=== PATIENT | female | born 1955 | race Caucasian/White ===

== ENCOUNTER → 2016-06-18 | Outpatient (CLI) | payer BC ==
[~2016-06-18] MED LIST: ACTOS30 MG PO; ALDACTONE 25MG25 M1 PO; ALPHA LIPOIC ACID PO; AMITRIPTYLINE H10 M1; AMITRIPTYLINE H50 M1 PO; ASPIRIN 32325 MG/TA1 PO; B-121000 MCG PO; CANA300T PO; CLINORIL 2200 MG/TAB PO; ELAVIL150 MG PO; FEMARA PO; GLUCOPHAGE500 MG/TAB PO; GLUCOTROL XL10 MG PO; GLUCOTROL10 MG PO; HAIRSKINNAILS PO; JANUMET 1000 MG1 TA1 PO; JANUVIA 100MG100 MG PO; LANTUS SOLOS100 U/ML SC; LANTUS100 U/ML SQ; LASIX 20MG TABL20 MG PO; LIPITOR 10MG10 MG PO; MYRBETR50MG PO; NATURAL E400 IU PO; NEURONTIN300 MG/CAP PO; NORCO 325 MG-7.1 TAB PO; NOVLOG SC; NOVOLOG 100U100 U/M1 SQ; PAMELOR 10MG10 MG PO; PRILOSEC 20MG20 MG PO; PROFERRIN ES12 MG PO; PROZAC40 MG PO; TENORMIN 5050 MG/TAB PO; TOUJEO300 U/ML SQ; URSO FORTE500 MG PO; VASOTEC 10M10 MG/TAB PO
== END ==
LOC: MC.RAD 13:00
DX: Z12.31 Encounter for screening mammogram for malignant neoplasm of breast (principal); Z85.3 Personal history of malignant neoplasm of breast; Z90.11 Acquired absence of right breast and nipple

== ENCOUNTER 2016-10-07 12:08 | Outpatient (CLI) | payer BC ==
[2016-10-07] VITALS (11 sets, daily range): BP systolic 90–118; BP diastolic 32–54; PULSE 83–91
[~2016-10-07] VITALS: Ht 170.2 cm; Wt 131.7 kg
== END 2016-10-07 16:37 | disposition home or self-care (01) ==
LOC: COL.RAD 12:08
DX: R91.1 Solitary pulmonary nodule (principal); Z85.3 Personal history of malignant neoplasm of breast

== ENCOUNTER → 2016-10-24 | Outpatient (CLI) | payer BC ==
[2016-10-24 17:15] LABS: BASO # 0.1 (0.0-0.2); EOS # 0.5 (0.0-0.7); GRAN # 3.6 (1.4-6.5); GRAN % 59.3 % (42.2-75.2); LYMPH # 1.1 (1.2-3.4); LYMPH % 18.6 % (20.0-51.0); MEAN CELL VOLUME 99 fl (80.0-100.0); MEAN CORPUSCULAR HGB CONC 38 g/dl (33.0-37.0); MEAN PLATELET VOLUME 10.5 fl (7.4-10.4); MONO # 0.8 (0.1-0.6); MONO % 12.8 % (1.7-9.3); PLATELET COUNT 87 K/mm3 (130-400); RED BLOOD COUNT 3.08 M/mm3 (4.10-5.30); REDCELL DISTRIBUTION WIDTH-CV 14.6 % (11.5-14.5); WHITE BLOOD COUNT 6.1 K/mm3 (4.8-10.8)
[2016-10-24 17:19] LABS: HEMATOCRIT 30.6 % (37.0-47.0); HEMOGLOBIN 11.6 g/dl (12.5-16.0); MEAN CORPUSCULAR HEMOGLOBIN 38 pg (27.0-31.0)
[2016-10-24 17:26] LABS: ADJUSTED CALCIUM 9.6 mg/dL (8.4-10.2); ALBUMIN 3.6 gm/dL (3.5-5.0); BILIRUBIN,TOTAL 0.9 mg/dL (0.0-1.0); C-REACTIVE PROTEIN 1.7 mg/dL (0.0-0.9); CALCIUM 9.3 mg/dL (8.4-10.2); CREATININE, serum 0.98 mg/dL (0.52-1.25); POTASSIUM 4.1 mmol/L (3.4-5.0)
[2016-10-24 17:42] LABS: ERYTHROCYTE SEDIMENTATION RATE 95 mm/hr (0-30)
[2016-10-30 10:31] LABS: .HISTOPLASMA ANTIGEN COMMENT Negative (()); .HISTOPLASMA ANTIGEN SERUM None Detected (())
[2016-10-30 15:06] LABS: COCCIDIOIDES AB IGG Negative (Negative); COCCIDIOIDES AB IGM Negative (Negative); COCCIDIOIDES CF Negative (Negative)
== END ==
LOC: COL.LAB 15:54
PROVIDERS: Internal Medicine Infectious Disease
DX: B39.9 Histoplasmosis, unspecified (principal)

== ENCOUNTER → 2016-11-14 | Outpatient (CLI) | payer BC ==
[2016-11-20 08:35] LABS: .HISTOPLASMA ANTIGEN COMMENT Negative (()); .HISTOPLASMA ANTIGEN SERUM None Detected (())
== END ==
LOC: COL.LAB 12:26
PROVIDERS: Internal Medicine Infectious Disease
DX: B39.9 Histoplasmosis, unspecified (principal)

== ENCOUNTER → 2017-08-06 | Outpatient (CLI) | payer BC ==
[~2017-08-06] VITALS: Ht 170.2 cm; Wt 130.9 kg
[~2017-08-06] MED LIST changes: +JARDIANCE25; +JARDIANCE25 PO
[2017-08-06 12:57] VITALS: BP 111/70; PULSE 95
== END ==
LOC: COL.RAD 12:15
DX: K74.60 Unspecified cirrhosis of liver (principal); Z85.3 Personal history of malignant neoplasm of breast; Z90.49 Acquired absence of other specified parts of digestive tract; Z98.890 Other specified postprocedural states

== ENCOUNTER → 2017-09-07 | Outpatient (CLI) | payer BC | LOC: MC.RAD 07-28 11:20 | DX: Z12.31 Encounter for screening mammogram for malignant neoplasm of breast (principal); Z85.3 Personal history of malignant neoplasm of breast ==

== ENCOUNTER 2017-11-24 09:43 | Day surgery (SDC) | payer BC ==
[~2017-11-24] VITALS: Ht 170.2 cm; Wt 119.5 kg
[~2017-11-24 09:43] MED LIST changes: +ALDACTONE 100M100 MG PO; -ALDACTONE 25MG25 M1 PO; +ALPHA LIPOIC A200 M2 PO; -ALPHA LIPOIC ACID PO; -LASIX 20MG TABL20 MG PO; +LASIX 40MG TABL40 MG PO; +NATURAL IRON65 MG PO; -PROFERRIN ES12 MG PO
[2017-11-24] MEDS ORDERED: VITAMIN D31000 I1 PO (10:45)
[2017-11-24] MEDS ORDERED: VITAMIN C500 MG PO (10:50)
[2017-11-24 11:03] VITALS: BP 120/56; PULSE 88; TEMP 98.1
[2017-11-24 12:15] VITALS: BP 113/48; PULSE 88; TEMP 98.3
[2017-11-24 12:30] VITALS: BP 115/58; PULSE 85
[2017-11-24 12:45] VITALS: BP 114/63; PULSE 89
[2017-11-24 13:35] VITALS: BP 105/57; PULSE 85
== END 2017-11-24 13:05 | disposition home or self-care (01) ==
LOC: SDCO 09:43
DX: K76.6 Portal hypertension (principal); K31.89 Other diseases of stomach and duodenum; K74.60 Unspecified cirrhosis of liver; I85.10 Secondary esophageal varices without bleeding; K76.0 Fatty (change of) liver, not elsewhere classified; D50.0 Iron deficiency anemia secondary to blood loss (chronic); E11.42 Type 2 diabetes mellitus with diabetic polyneuropathy; G47.33 Obstructive sleep apnea (adult) (pediatric); D69.6 Thrombocytopenia, unspecified; Z90.49 Acquired absence of other specified parts of digestive tract; Z90.11 Acquired absence of right breast and nipple; Z79.4 Long term (current) use of insulin; Z88.1 Allergy status to other antibiotic agents; Z85.3 Personal history of malignant neoplasm of breast
CPT/HCPCS: J2704

== ENCOUNTER 2018-04-06 08:40 | Day surgery (SDC) | payer BC ==
[~2018-04-06] VITALS: Ht 170.2 cm; Wt 126.7 kg
[2018-04-06] VITALS (22 sets, daily range): BP systolic 107–133; BP diastolic 60–72; PULSE 83–105; TEMP 98–98.1
[~2018-04-06 08:40] MED LIST changes: +VITAMIN C500 MG PO; +VITAMIN D31000 I1 PO
[2018-04-06 09:39] LABS: MEAN CELL VOLUME 89 fl (80.0-100.0); MEAN CORPUSCULAR HGB CONC 31 g/dl (33.0-37.0); MEAN PLATELET VOLUME 9.9 fl (7.4-10.4); RED BLOOD COUNT 2.32 M/mm3 (4.10-5.30); REDCELL DISTRIBUTION WIDTH-CV 17.3 % (11.5-14.5)
[2018-04-06] MEDS ORDERED: XIFAXAN550 MG PO (09:47)
[2018-04-06] MEDS ORDERED: PROTONIX 40MG T40 MG PO (09:48)
[2018-04-06 09:50] LABS: INR 1.8 (0.8-3.0)
[2018-04-06 09:53] LABS: CALCIUM 8.7 mg/dL (8.4-10.2); CREATININE, serum 1.43 mg/dL (0.52-1.25); POTASSIUM 4.4 mmol/L (3.4-5.0)
[2018-04-06 10:00] LABS: HEMATOCRIT 20.7 % (37.0-47.0); HEMOGLOBIN 6.4 g/dl (12.5-16.0); MEAN CORPUSCULAR HEMOGLOBIN 28 pg (27.0-31.0); PLATELET COUNT 62 K/mm3 (130-400)
== END 2018-04-06 18:20 | disposition home or self-care (01) ==
LOC: COL.CAR 08:40
PROVIDERS: Internal Medicine Cardiovascular Disease
DX: I27.20 Pulmonary hypertension, unspecified (principal); D64.9 Anemia, unspecified; R18.8 Other ascites; K72.90 Hepatic failure, unspecified without coma; R60.9 Edema, unspecified; Z79.899 Other long term (current) drug therapy; Z79.4 Long term (current) use of insulin; I05.9 Rheumatic mitral valve disease, unspecified; I10 Essential (primary) hypertension; E78.5 Hyperlipidemia, unspecified; I08.1 Rheumatic disorders of both mitral and tricuspid valves
CPT/HCPCS: J1644; J2250; J3010; P9016; Q9967

== ENCOUNTER 2018-04-26 12:55 | Outpatient (CLI) | payer BC ==
[~2018-04-26] VITALS: Ht 170.2 cm; Wt 134.9 kg
[~2018-04-26 12:55] MED LIST changes: +PROTONIX 40MG T40 MG PO; +XIFAXAN550 MG PO
[2018-04-26] MEDS ORDERED: JANUVIA25 MG (13:13)
[2018-04-26 13:20] VITALS: BP 155/75; PULSE 116
--- NOTE | 2018-04-26 13:30 | NUR ---
pt taken to ultrasound
[2018-04-26 14:49] VITALS: BP 151/76; PULSE 112
--- NOTE | 2018-04-26 14:52 | NUR ---
NO FLUID WAS SENT FOR LABS. DR MENDOZA'S OFFICE NURSE WAS NOTIFIED. ALL FLUID WAS SOLIDIFIED.
--- NOTE | 2018-04-26 14:54 | NUR ---
7700 CC OF REDDISH BROWN FLUID WAS REMOVED BY DR CHANG. IT WAS REPORTED THAT THE LAST SEVERAL LITERS WERE THICKER THAN THE FIRST LITERS.
[2018-04-26 15:20] VITALS: BP 120/48; PULSE 108; TEMP 97.9
== END 2018-04-26 17:31 | disposition home or self-care (01) ==
LOC: COL.RAD 12:55
DX: K74.60 Unspecified cirrhosis of liver (principal)
CPT/HCPCS: P9047

== ENCOUNTER → 2018-05-10 | Outpatient (CLI) | payer BC ==
[~2018-05-10] MED LIST changes: +JANUVIA25 MG
== END ==
LOC: COL.RAD 10:13
DX: K74.3 Primary biliary cirrhosis (principal); R16.1 Splenomegaly, not elsewhere classified; E11.9 Type 2 diabetes mellitus without complications; K75.81 Nonalcoholic steatohepatitis (NASH); K72.90 Hepatic failure, unspecified without coma; Z90.49 Acquired absence of other specified parts of digestive tract

== ENCOUNTER 2018-05-16 18:46 | Inpatient (IN) | payer BC ==
[~2018-05-16] VITALS: Ht 170.2 cm; Wt 121.3 kg
[2018-05-16 19:24] VITALS: PULSE 84; TEMP 98
[2018-05-16] MEDS ORDERED: VASOTEC 10M10 MG/TAB PO (20:47)
[2018-05-16] MEDS ORDERED: LASIX 80MG TABL80 MG PO (20:48)
[2018-05-16] MEDS ORDERED: URSO FORTE500 MG PO (20:49)
[2018-05-16] MEDS ORDERED: SYNTHROID 0.0.025 MG PO (20:51)
[2018-05-16] MEDS ORDERED: PHARMASSURE ZIN50 MG PO (20:52)
[2018-05-16] MEDS ORDERED: INDERAL 10MG10 MG PO (20:52)
[2018-05-16 22:24] LABS: BASO % 0.5 % (0.0-2.0); EOS # 0.4 (0.0-0.7); EOS % 5.3 % (0-4.0); GRAN % 61.2 % (42.2-75.2); LYMPH # 1.3 (1.2-3.4); LYMPH % 15.5 % (20.0-51.0); MEAN CELL VOLUME 95 fl (80.0-100.0); MEAN CORPUSCULAR HGB CONC 31 g/dl (33.0-37.0); MEAN PLATELET VOLUME 9.8 fl (7.4-10.4); MONO # 1.3 (0.1-0.6); MONO % 16.5 % (1.7-9.3); PLATELET COUNT 60 K/mm3 (130-400); RED BLOOD COUNT 2.66 M/mm3 (4.10-5.30); REDCELL DISTRIBUTION WIDTH-CV 21.6 % (11.5-14.5)
[2018-05-16 22:26] LABS: HEMATOCRIT 25.2 % (37.0-47.0); HEMOGLOBIN 7.9 g/dl (12.5-16.0); MEAN CORPUSCULAR HEMOGLOBIN 30 pg (27.0-31.0)
[2018-05-16 22:33] LABS: INR 1.6 (0.8-3.0); PROTHROMBIN TIME 18.2 SECONDS (9.7-12.8)
[2018-05-16 22:39] LABS: ALBUMIN 2.8 gm/dL (3.5-5.0); BILIRUBIN,TOTAL 1.3 mg/dL (0.0-1.0); CALCIUM 8.7 mg/dL (8.4-10.2); CREATININE, serum 1.32 mg/dL (0.52-1.25); POTASSIUM 3.8 mmol/L (3.4-5.0)
[2018-05-17] VITALS (11 sets, daily range): BP systolic 83–105; BP diastolic 42–64; PULSE 67–91; TEMP 97.7–98.5
[2018-05-18] VITALS (17 sets, daily range): BP systolic 99–142; BP diastolic 45–80; PULSE 91–107; TEMP 97.9–98.9
[2018-05-18 06:49] LABS: BASO % 0.5 % (0.0-2.0); EOS # 0.5 (0.0-0.7); EOS % 6.1 % (0-4.0); GRAN % 63.8 % (42.2-75.2); LYMPH % 13.3 % (20.0-51.0); MEAN CELL VOLUME 98 fl (80.0-100.0); MEAN CORPUSCULAR HGB CONC 34 g/dl (33.0-37.0); MEAN PLATELET VOLUME 10.4 fl (7.4-10.4); MONO # 1.2 (0.1-0.6); MONO % 15.4 % (1.7-9.3); PLATELET COUNT 57 K/mm3 (130-400); RED BLOOD COUNT 2.37 M/mm3 (4.10-5.30); REDCELL DISTRIBUTION WIDTH-CV 23.3 % (11.5-14.5)
[2018-05-18 06:50] LABS: HEMATOCRIT 23.1 % (37.0-47.0); HEMOGLOBIN 7.9 g/dl (12.5-16.0); MEAN CORPUSCULAR HEMOGLOBIN 33 pg (27.0-31.0)
[2018-05-18 07:01] LABS: ALBUMIN 2.8 gm/dL (3.5-5.0); CALCIUM 8.6 mg/dL (8.4-10.2); CREATININE, serum 1.3 mg/dL (0.52-1.25); POTASSIUM 3.5 mmol/L (3.4-5.0)
[2018-05-18 11:02] LABS: RETIC # 0.08 M/mm3 (0.02-0.16); RETIC % 6.4 % (0.5-3.52)
[2018-05-19 03:30] VITALS: BP 117/57; PULSE 97; TEMP 98.1
[2018-05-19 07:01] LABS: BASO # 0.1 (0.0-0.2); BASO % 0.7 % (0.0-2.0); EOS # 0.6 (0.0-0.7); EOS % 7.2 % (0-4.0); GRAN # 5.8 (1.4-6.5); GRAN % 67.7 % (42.2-75.2); HEMATOCRIT 27.7 % (37.0-47.0); HEMOGLOBIN 9.4 g/dl (12.5-16.0); LYMPH % 11.2 % (20.0-51.0); MEAN CELL VOLUME 96 fl (80.0-100.0); MEAN CORPUSCULAR HEMOGLOBIN 32 pg (27.0-31.0); MEAN CORPUSCULAR HGB CONC 34 g/dl (33.0-37.0); MEAN PLATELET VOLUME 10.3 fl (7.4-10.4); MONO # 1.1 (0.1-0.6); MONO % 12.5 % (1.7-9.3); PLATELET COUNT 53 K/mm3 (130-400); REDCELL DISTRIBUTION WIDTH-CV 22.5 % (11.5-14.5)
[2018-05-19 07:16] LABS: ALBUMIN 2.8 gm/dL (3.5-5.0); CALCIUM 8.5 mg/dL (8.4-10.2); CREATININE, serum 1.05 mg/dL (0.52-1.25); POTASSIUM 3.7 mmol/L (3.4-5.0)
[2018-05-19 08:17] VITALS: BP 116/65; PULSE 101; TEMP 98.1
[2018-05-19 16:35] VITALS: BP 120/62; PULSE 100; TEMP 98.5
[2018-05-19 20:16] VITALS: BP 107/53; PULSE 102; TEMP 98.6
[2018-05-20 00:48] VITALS: BP 116/66; PULSE 103; TEMP 98.3
[2018-05-20 04:03] VITALS: BP 105/56; PULSE 195; PULSE 95; TEMP 98.4
[2018-05-20 06:16] LABS: ALBUMIN 2.6 gm/dL (3.5-5.0); CALCIUM 8.2 mg/dL (8.4-10.2); CREATININE, serum 0.89 mg/dL (0.52-1.25); PHOSPHOROUS 2.4 mg/dL (2.5-4.5); POTASSIUM 3.9 mmol/L (3.4-5.0)
[2018-05-20 06:37] LABS: BASO # 0.1 (0.0-0.2); BASO % 0.7 % (0.0-2.0); EOS # 0.6 (0.0-0.7); EOS % 7.2 % (0-4.0); GRAN # 5.5 (1.4-6.5); GRAN % 67.5 % (42.2-75.2); LYMPH # 0.9 (1.2-3.4); LYMPH % 10.6 % (20.0-51.0); MEAN CELL VOLUME 95 fl (80.0-100.0); MEAN CORPUSCULAR HGB CONC 35 g/dl (33.0-37.0); MEAN PLATELET VOLUME 9.1 fl (7.4-10.4); MONO # 1.1 (0.1-0.6); MONO % 12.9 % (1.7-9.3); RED BLOOD COUNT 2.74 M/mm3 (4.10-5.30); REDCELL DISTRIBUTION WIDTH-CV 22.1 % (11.5-14.5)
[2018-05-20 06:38] LABS: HEMATOCRIT 26.1 % (37.0-47.0); HEMOGLOBIN 9.1 g/dl (12.5-16.0); MEAN CORPUSCULAR HEMOGLOBIN 33 pg (27.0-31.0)
[2018-05-20 06:40] LABS: PLATELET COUNT 40 K/mm3 (130-400)
[2018-05-20 07:11] VITALS: BP 125/72; PULSE 104; TEMP 98.3
== END 2018-05-20 11:38 | disposition home or self-care (01) | DRG 674 ==
LOC: MEDICAL 18:46
PROVIDERS: ADMIT Internal Medicine Nephrology
PROC: 0JH60XZ Insertion of Tunneled Vascular Access Device into Chest Subcutaneous Tissue and Fascia, Open Approach (ICD-10-PCS; principal; 2018-05-17)
PROC: 02H633Z Insertion of Infusion Device into Right Atrium, Percutaneous Approach (ICD-10-PCS; 2018-05-17)
PROC: 5A1D70Z Performance of Urinary Filtration, Intermittent, Less than 6 Hours Per Day (ICD-10-PCS; 2018-05-18)
PROC: 5A1D70Z Performance of Urinary Filtration, Intermittent, Less than 6 Hours Per Day (ICD-10-PCS; 2018-05-19)
PROC: 0W9G3ZZ Drainage of Peritoneal Cavity, Percutaneous Approach (ICD-10-PCS; 2018-05-19)
DX: N17.9 Acute kidney failure, unspecified (principal); Z68.41 Body mass index [BMI] 40.0-44.9, adult; R18.8 Other ascites; D62 Acute posthemorrhagic anemia; N18.2 Chronic kidney disease, stage 2 (mild); K74.69 Other cirrhosis of liver; K74.3 Primary biliary cirrhosis; E66.01 Morbid (severe) obesity due to excess calories; K72.90 Hepatic failure, unspecified without coma; D63.1 Anemia in chronic kidney disease; E11.22 Type 2 diabetes mellitus with diabetic chronic kidney disease; Z85.3 Personal history of malignant neoplasm of breast
CPT/HCPCS: G0365; J0690; J0881; J1644; J1815; J2250; J2916; J3010; P9016

== ENCOUNTER 2018-07-27 15:08 | Inpatient (IN) | payer BC ==
[~2018-07-27 15:08] MED LIST changes: +INDERAL 10MG10 MG PO; -JANUVIA25 MG; +JANUVIA25 MG PO; +LASIX 80MG TABL80 MG PO; +PHARMASSURE ZIN50 MG PO; +SYNTHROID 0.0.025 MG PO
[2018-07-27] MEDS ORDERED: LACTULOSE10 GM/153 PO (15:44)
[2018-07-27] MEDS ORDERED: TOUJEO300 U/ML SQ (15:53)
[2018-07-27 15:59] VITALS: BP 137/61; PULSE 96; TEMP 98.2
[2018-07-27] MEDS ORDERED: PROAMATINE 5MG T5 MG PO (16:17)
[2018-07-27] MEDS ORDERED: NOVOLOG FLEX100 U/ML SQ (16:25)
[2018-07-27] MEDS ORDERED: KENALOG-1010 MG/ML TOP (16:28)
--- NOTE | 2018-07-27 16:54 | NUR ---
Pt arrived to room 312 via EMS from [facility]. She opens her eyes for a few seconds when her name is spoken, but then quickly falls back asleep. Saline lock to right AC is free of complications. Dialysis cath to upper chest is free of complications. Pt appears jaundice. Brusing to upper extremities noted. Pt's initially not at bedside, but then arrived. Medications reviewed with . Allergies and pharm updated.
[2018-07-27 17:11] LABS: ARTERIAL BLD GAS O2 SATURATION 96.4 % (92-100); ARTERIAL BLD GAS TCO2 CT 19.4; ARTERIAL BLOOD GAS BASE EXCESS -3.3 (-2-2); ARTERIAL BLOOD GAS HCO3 18.6 meq/L (22-26); ARTERIAL BLOOD GAS PO2 91.7 mmHg (80-100); ARTERIAL BLOOD GAS pH 7.51 (7.35-7.45)
--- NOTE | 2018-07-27 18:35 | NUR ---
Pt continues to be lethargic throughout shift, opening her eyes occasionally but shutting them quickly. Dr. Rhoades updated family of plan of care, expressed understanding.
[2018-07-27 19:06] VITALS: BP 140/60; PULSE 101; TEMP 97.5
[2018-07-27 19:09] VITALS: BP 140/60; PULSE 100; TEMP 97.5
--- NOTE | 2018-07-27 19:21 | NUR ---
Report received from NAOMI Kulkarni
[2018-07-27 22:07] VITALS: BP 135/60; PULSE 94; TEMP 98.2
--- NOTE | 2018-07-27 22:13 | NUR ---
Attempted to give lactolose as ordered. Patient had very large bloody stool with several large clots present. Care provided to patient. VS taken. Dr. Rohades notified. STAT H&H and type and cross ordered. Lab notified. Assessment complete. Lungs clear. Heart sounds normal. Bowels active x4. Pulses strong. Cap refill >2 sec. Bilateral lower leg edema +2 present. Bruising on right buttock. Several bruises to left arm and chest present. Patient opens eye to verbal stimuli. will be at bedside throughout night. Bhardwaj in place. Right chest dialysis cath present. Will closely monitor.
[2018-07-27 22:31] LABS: HEMATOCRIT 24.2 % (37.0-47.0); HEMOGLOBIN 8.8 g/dl (12.5-16.0)
--- NOTE | 2018-07-27 22:49 | NUR ---
Dr. Rhoades made aware of hemoglobin at 8.8. No new orders. Asked if Dr. Rhoades would like GI consults. "not at this point." Will continue to monitor.
[2018-07-27 23:20] VITALS: BP 110/54; PULSE 98; TEMP 97.5
[2018-07-28] VITALS (17 sets, daily range): BP systolic 107–139; BP diastolic 50–77; PULSE 96–106; TEMP 97.8–98.4
--- NOTE | 2018-07-28 00:15 | NUR ---
Patient incontinent of large bloody stool with several clots present. Care provided and repositioned.
--- NOTE | 2018-07-28 02:00 | NUR ---
Repositioned at this time. Large bloody stool present. Care provided.
--- NOTE | 2018-07-28 03:30 | NUR ---
Repositioned at this time. at bedside.
[2018-07-28 06:55] LABS: BASO % 0.4 % (0.0-2.0); EOS # 0.5 (0.0-0.7); EOS % 4.2 % (0-4.0); GRAN % 72.3 % (42.2-75.2); LYMPH # 1.1 (1.2-3.4); LYMPH % 10.1 % (20.0-51.0); MEAN CELL VOLUME 110 fl (80.0-100.0); MEAN CORPUSCULAR HGB CONC 36 g/dl (33.0-37.0); MEAN PLATELET VOLUME 9.9 fl (7.4-10.4); MONO # 1.4 (0.1-0.6); MONO % 12.5 % (1.7-9.3); PLATELET COUNT 78 K/mm3 (130-400); RED BLOOD COUNT 1.93 M/mm3 (4.10-5.30); REDCELL DISTRIBUTION WIDTH-CV 16.8 % (11.5-14.5)
[2018-07-28 07:01] LABS: ALBUMIN 2.7 gm/dL (3.5-5.0); BILIRUBIN,TOTAL 1.9 mg/dL (0.0-1.0); CALCIUM 8.7 mg/dL (8.4-10.2); POTASSIUM 3.9 mmol/L (3.4-5.0); TOTAL PROTEIN 5.7 gm/dL (6.4-8.2)
[2018-07-28 07:02] LABS: HEMATOCRIT 21.3 % (37.0-47.0); HEMOGLOBIN 7.7 g/dl (12.5-16.0); MEAN CORPUSCULAR HEMOGLOBIN 40 pg (27.0-31.0)
[2018-07-28 07:15] LABS: CREATININE, serum 7.1 (0.52-1.25)
--- NOTE | 2018-07-28 07:38 | NUR ---
Patient had several large bloody stools with clots present throughtout shift. Dr. Rhoades aware. Patient remain lethargic, occasionally states "yeah." at bedside throughout night. Incontinent this Am. Care provided. Call light in reach.
--- NOTE | 2018-07-28 08:26 | NUR ---
Pt lying in bed, alert , not oriented. Breathing even and unlabored. Denies any pain. completed morning assessment. Red tinged urine in perez. No blood in briefs currently. Family at bedside. Call light in reach.
[2018-07-28 09:27] LABS: INR 1.7 (0.8-3.0); PROTHROMBIN TIME 19.2 SECONDS (9.7-12.8)
--- NOTE | 2018-07-28 11:24 | NUR ---
Pt lying in bed, alert but will only answer with yes. Blood started, this nurse will stay at bedside for first 15 min and watch for any adverse reactions. Taught pt and family to watch for flushing, sweating or shortness of breath.
--- NOTE | 2018-07-28 11:51 | NUR ---
PT TOLERATING BLOOD TRANSUFSION WELL. INCREASED TO 120.
--- NOTE | 2018-07-28 12:23 | NUR ---
First visit from the automatic clipper and stripper. No needs right now.
--- NOTE | 2018-07-28 12:30 | NUR ---
COMPLETED 3 TAP WATER ENEMAS ON PY. AT FIRST DARK RED BLOOD FLOWED OUT, 3 LARGE BLOOD CLOTS CAME OUT. ON 3RD ENEMA THE WATER RAN CLEAR.
--- NOTE | 2018-07-28 12:30 | NUR ---
REMOVED DENNY CATHETER, 10ML REMOVED FROM BALLOON. CATHETER TIP INTACT, PROVIDED PERINIAL HYGEINE.
--- NOTE | 2018-07-28 13:12 | NUR ---
MAGALIS met with patient and family to discuss discharge planning. Patient lives in [place] with her Valentin. Her PCP is Dr Moreland and she obtains her medications from [facility]. Patients DPOA is in EMR. She uses a walker to ambulate and is open to home health if it is recommended at discharge. Patient also receives dialysis at the [facility] in [place]. MAGALIS will continue to follow to assist with dc needs.
--- NOTE | 2018-07-28 14:10 | NUR ---
PT TAKEN OFF FLOOR FOR EGD/COLONSCOPY
--- NOTE | 2018-07-28 15:44 | NUR ---
ATTEMPTED TO CONTACT DR. PUCKETT X3 ABOUT LACTOLUSE PRESCRIPTION. NOT ABLE TO LEAVE VOICEMAIL.
--- NOTE | 2018-07-28 16:55 | NUR ---
Began administration of blood, advised pt and family to observe for adverse reactions such as flushing, sweating or shortness of breath. This RN will stay first 15 min.
--- NOTE | 2018-07-28 18:38 | NUR ---
Pt lying in bed, awakens to verbal stimuli. Breathing even and unlabored.Nllod is transfusing. Vital signs stable. Will continue to monitor
--- NOTE | 2018-07-28 19:00 | NUR ---
Report received from NAOMI Rodriguez.
--- NOTE | 2018-07-28 19:14 | NUR ---
Hand off report given to Sonya SALGADO. Pt sleeping, awakens to verbal stimuli.
--- NOTE | 2018-07-28 20:01 | NUR ---
Notified Dr. Rhoades blood transfusion complete. Asked if Dr. Rhoades wanted repeat H&H. No at this time. Clarified order for lactolose. Give orally 20gm as per pharmacy order. No other orders at this time.
--- NOTE | 2018-07-29 00:35 | NUR ---
Incontinent of stool. Care provided. Blood sugar 317. Provided 10 units of novolog as ordered per sliding scale. Will monitor. Denies needs. Call light in reach.
[2018-07-29 04:17] VITALS: BP 108/50; PULSE 104; TEMP 98.9
--- NOTE | 2018-07-29 04:27 | NUR ---
Resting in bed. Denies needs. Call light inreach.
[2018-07-29 07:03] LABS: BASO % 0.2 % (0.0-2.0); EOS # 0.1 (0.0-0.7); EOS % 1.1 % (0-4.0); GRAN # 10.3 (1.4-6.5); GRAN % 77.9 % (42.2-75.2); HEMOGLOBIN 8.1 g/dl (12.5-16.0); LYMPH # 1.3 (1.2-3.4); LYMPH % 9.4 % (20.0-51.0); MEAN CELL VOLUME 103 fl (80.0-100.0); MEAN CORPUSCULAR HEMOGLOBIN 36 pg (27.0-31.0); MEAN CORPUSCULAR HGB CONC 35 g/dl (33.0-37.0); MEAN PLATELET VOLUME 9.9 fl (7.4-10.4); MONO # 1.4 (0.1-0.6); MONO % 10.4 % (1.7-9.3); PLATELET COUNT 59 K/mm3 (130-400); RED BLOOD COUNT 2.23 M/mm3 (4.10-5.30); REDCELL DISTRIBUTION WIDTH-CV 18.7 % (11.5-14.5)
[2018-07-29 07:16] LABS: ALBUMIN 2.6 gm/dL (3.5-5.0); CALCIUM 8.6 mg/dL (8.4-10.2); POTASSIUM 3.7 mmol/L (3.4-5.0); TOTAL PROTEIN 5.3 gm/dL (6.4-8.2)
[2018-07-29 07:20] LABS: CREATININE, serum 7.48 (0.52-1.25)
--- NOTE | 2018-07-29 07:30 | NUR ---
Patient had uneventful night. Continues to have medium bloody stools with some clots present. Alert and orientated. Report given to Clara SALGADO. Resting in bed this AM.
[2018-07-29 07:35] VITALS: BP 136/72; PULSE 104; TEMP 98
--- NOTE | 2018-07-29 08:00 | NUR ---
PATIENT SITTING UP IN BED WITH AND DAUGHTER PRESENT AT THE BEDSIDE. SEE MORNING ASSESSMENT. PATIENT IS A&OX4. PATIENT TOLERATING CLEAR LIQUIDS WITHOUT N/V. PATIENT DENIES PAIN. CALL LIGHT WITHIN REACH. PATIENT DENIES ANY NEEDS AT THIS TIME.
--- NOTE | 2018-07-29 09:05 | NUR ---
VITAMIN K 10MG PO ONE TIME DOSE NOW. 1 UNIT OF FFB TO TRANSFUSE TODAY. TORB DR. PUCKETT THIS NURSE.
[2018-07-29 12:00] VITALS: BP 127/58; PULSE 98; TEMP 98.5
--- NOTE | 2018-07-29 13:10 | NUR ---
PATIENT TAKEN TO DIALYSIS VIA BED BY MEDICAL STAFF. WILL WAIT FOR ARRIVAL BACK TO ROOM 312.
--- NOTE | 2018-07-29 16:50 | NUR ---
PATIENT ARRIVED BACK TO ROOM 312 VIA BED FROM DIALYSIS. PATIENT SETTELED INTO ROOM.
[2018-07-29 17:13] VITALS: BP 127/69; PULSE 105; TEMP 97.9
--- NOTE | 2018-07-29 19:30 | NUR ---
CLEAR LIQUIDS TRAY ON BEDSIDE TABLE. FAMILY PRESENT AT BEDSIDE. PATIENT REPOSITIONED IN BED. REPORT GIVEN TO NAOMI BETANCOURT.
[2018-07-29 19:37] VITALS: BP 123/64; PULSE 104; TEMP 98.5
--- NOTE | 2018-07-29 21:50 | NUR ---
pt resting in bed A+OX4. report no pain. reports itching, prn benadryl given- pt reports this occuring regularly. Dialysis cath DCI. PT reports mult episode of loose stool, lactulose refused. LFA IV flushes well, no redness no swelling. pt has mult bruising on bilateral arms. no needs at this time. call light in reach
[2018-07-30] VITALS (18 sets, daily range): BP systolic 107–133; BP diastolic 47–71; PULSE 88–117; TEMP 97.3–98.6
--- NOTE | 2018-07-30 05:47 | NUR ---
pt had an uneventful night. pt reports no sleep during night. pt c/o itching throughout night prn benadyl given- reports not helpful. no pain during night. repositioned throughout night. no needs at this time. call light in reach
--- NOTE | 2018-07-30 07:42 | NUR ---
REPORT GIVEN TO NAOMI UNGER. PT HAS NO NEEDS AT THIS TIME
--- NOTE | 2018-07-30 09:04 | NUR ---
Resting in bed at this time. No pain report. The patient does voice she is having continued itching to the lower extremities. Benedryl provided PRN for relief. Plan for dialysis this morning, awaiting call to take her. Student, RN, Sofiya assisting with care and medications. This nurse has reviewed and agrees with her assessment.
[2018-07-30 10:54] LABS: BASO % 0.1 % (0.0-2.0); EOS # 0.2 (0.0-0.7); EOS % 2.2 % (0-4.0); GRAN # 5.9 (1.4-6.5); GRAN % 79.3 % (42.2-75.2); LYMPH # 0.7 (1.2-3.4); LYMPH % 9.5 % (20.0-51.0); MEAN CELL VOLUME 105 fl (80.0-100.0); MEAN CORPUSCULAR HGB CONC 35 g/dl (33.0-37.0); MEAN PLATELET VOLUME 9.9 fl (7.4-10.4); MONO # 0.6 (0.1-0.6); RED BLOOD COUNT 1.93 M/mm3 (4.10-5.30); REDCELL DISTRIBUTION WIDTH-CV 17.8 % (11.5-14.5)
[2018-07-30 11:06] LABS: ALBUMIN 2.8 gm/dL (3.5-5.0); BILIRUBIN,TOTAL 1.6 mg/dL (0.0-1.0); CALCIUM 8.8 mg/dL (8.4-10.2); POTASSIUM 3.2 mmol/L (3.4-5.0); TOTAL PROTEIN 5.7 gm/dL (6.4-8.2)
[2018-07-30 11:07] LABS: CREATININE, serum 4.23 (0.52-1.25)
[2018-07-30 11:23] LABS: HEMATOCRIT 20.2 % (37.0-47.0); MEAN CORPUSCULAR HEMOGLOBIN 36 pg (27.0-31.0)
[2018-07-30 11:24] LABS: PLATELET COUNT 29 K/mm3 (130-400)
[2018-07-30 12:23] LABS: INR 1.4 (0.8-3.0); PROTHROMBIN TIME 16.2 SECONDS (9.7-12.8)
--- NOTE | 2018-07-30 13:35 | NUR ---
Primary nurse was assisted with [phone] patient care by [facility] AD[facility] velma Borja and [facility] AD[facility] Bev Lira RN-.
--- NOTE | 2018-07-30 17:03 | NUR ---
Platelets started at 60 mL/hr the primary nurse to remain at the bedside for the first 15 minutes. S/S of reaction discussed. Patient verbalized understanding.
--- NOTE | 2018-07-30 18:49 | NUR ---
Platelets rate was changed to 200 mL/hr at 1711.
--- NOTE | 2018-07-30 19:45 | NUR ---
One unit platelets given during dilaysis and one given at the bedside. Plan to tranfuse 2 units PRBC once Vancomycin is complete. Report given to NAOMI Valencia to resume care. No pain or needs reported at this time. Family is at the bedside.
[2018-07-31] VITALS (9 sets, daily range): BP systolic 112–137; BP diastolic 50–76; PULSE 52–104; TEMP 97.5–98.3
[2018-07-31 04:25] LABS: MEAN CELL VOLUME 105 fl (80.0-100.0); MEAN CORPUSCULAR HGB CONC 35 g/dl (33.0-37.0); RED BLOOD COUNT 2.06 M/mm3 (4.10-5.30); REDCELL DISTRIBUTION WIDTH-CV 19.5 % (11.5-14.5)
[2018-07-31 04:26] LABS: HEMATOCRIT 21.7 % (37.0-47.0); HEMOGLOBIN 7.5 g/dl (12.5-16.0); MEAN CORPUSCULAR HEMOGLOBIN 36 pg (27.0-31.0)
[2018-07-31 04:27] LABS: PLATELET COUNT 42 K/mm3 (130-400)
[2018-07-31 04:33] LABS: INR 1.5 (0.8-3.0); PROTHROMBIN TIME 16.7 SECONDS (9.7-12.8)
[2018-07-31 04:35] LABS: ALBUMIN 2.9 gm/dL (3.5-5.0); BILIRUBIN,TOTAL 1.4 mg/dL (0.0-1.0); CALCIUM 8.5 mg/dL (8.4-10.2); POTASSIUM 3.2 mmol/L (3.4-5.0); TOTAL PROTEIN 5.7 gm/dL (6.4-8.2)
[2018-07-31 04:36] LABS: CREATININE, serum 4.13 (0.52-1.25)
[2018-07-31 05:05] LABS: ANISOCYTOSIS 1+; BAND 6 % (0-10); LYMPHOCYTE 9 % (20.0-51.0); METAMYELOCYTE 1 % (0-0); NEUTROPHILS 71 % (42.0-75.2); PLATELET ESTIMATE DECREASED (NORMAL); POLYCHROMASIA 1+
--- NOTE | 2018-07-31 07:00 | NUR ---
PT RECIEVED ONE UNIT OF RED BLOOD CELLS THIS NOC. THIS NURSE WENT TO BLOOD BANK TO RECIEVE SECOND UNIT. TYPE AND SCREEN WAS THIS AM AT MIDNIGHT AND THE SECOND UNIT OF BLOOD WAS UNABLE TO BE ADMINISTERED. THIS NURSE HAD LAB REDRAW TYPE AND SCREEN AND GET ANOTHER UNIT OF BLOOD PREPARED FOR ADMINSITRATION. LAB WAS PREPARING SECOND UNIT OF BLOOD PT HAD A LARGE BRIGHT RED BLOODY STOOL NOTED. THIS NURSE INFORMED BEDROSE AND GI CHIEF BUSINESS DEVELOPMENT OFFICER PROVIDER KELLY OF PT CONDITION. DAY SHIFT NURSE TIM INFORMED ON PT CONDITION AND ALSO INFORMED OF PROVIDER RESPONSES.
--- NOTE | 2018-07-31 07:34 | NUR ---
Report received from NAOMI Valencia. Pt resting in bed and has been having bloody diarrhea since colonoscopy, which was done two days ago. She's had three blood transfusion and hasn't able to get the 4th one since she's covered with bloody stool this morning and had to be cleaned up. Call light in reach and pt's reporting she's having another diarrhea at this time. NAOMI Valencia reports she just called Dr. Rhoades and he ordered to go ahead to transfuse 4th blood this AM. NAOMI Valencia will call GI to inform pt's bleeding.
--- NOTE | 2018-07-31 08:39 | NUR ---
pt had another bloody stool and clots. pt cleaned out and resting in bed. dialysis nurse notified Dr. Rhoades informed pt that she should not be dialized if she's actively bleeding. She'll call Dr. Rhoades to make sure if she should not. Dr. Dove came by to see pt and her and informed them to have another colonoscopy to see where she's bleeding from. Call light in reach.
--- NOTE | 2018-07-31 10:29 | NUR ---
Pt went down for colonoscopy at this time.
--- NOTE | 2018-07-31 12:56 | NUR ---
Pt transfered after colonoscopy complete to dialysis. Pt c/o nausea and given med. Pt's transfusion started in dialysis.
--- NOTE | 2018-07-31 15:15 | NUR ---
Pt back from dialysis and asking for food. Dr. Dove called in for diet order. Pt educated to start with clear liquid diet first and then advance it and pt noted it. Pt alert and oriented. Pt denied pain. Call light in reach.
--- NOTE | 2018-07-31 16:20 | NUR ---
Pt's enjoying her food in bed. Pt denied pain. Pt and family went over transfer order and able to verbalize understanding of transfer procedure. Pt signed transfer paper. Call light in reach.
--- NOTE | 2018-07-31 17:04 | NUR ---
Report given to NAOMI Moreira at [facility]. Pt resting in bed comfortably and denied pain. Call light in reach.
--- NOTE | 2018-07-31 17:56 | NUR ---
Pt resting in bed comfortably and denied pain. No concern at this time.
--- NOTE | 2018-07-31 18:44 | NUR ---
Report given to NAOMI Wilkinson. Pt resting in bed. Call light in reach.
--- NOTE | 2018-07-31 19:05 | NUR ---
Pt left with EMT and [facility] notified her departure.
== END 2018-07-31 19:28 | disposition short-term general hospital (02) | DRG 70 ==
LOC: MEDICAL 15:08
PROVIDERS: ADMIT Internal Medicine Nephrology
PROC: 0W3P8ZZ Control Bleeding in Gastrointestinal Tract, Via Natural or Artificial Opening Endoscopic (ICD-10-PCS; 2018-07-28)
PROC: 0DJ08ZZ Inspection of Upper Intestinal Tract, Via Natural or Artificial Opening Endoscopic (ICD-10-PCS; 2018-07-28)
PROC: 5A1D70Z Performance of Urinary Filtration, Intermittent, Less than 6 Hours Per Day (ICD-10-PCS; principal; 2018-07-29)
PROC: 5A1D70Z Performance of Urinary Filtration, Intermittent, Less than 6 Hours Per Day (ICD-10-PCS; 2018-07-30)
PROC: 5A1D70Z Performance of Urinary Filtration, Intermittent, Less than 6 Hours Per Day (ICD-10-PCS; 2018-07-31)
PROC: 0DJD8ZZ Inspection of Lower Intestinal Tract, Via Natural or Artificial Opening Endoscopic (ICD-10-PCS; 2018-07-31)
DX: G93.41 Metabolic encephalopathy (principal); N18.6 End stage renal disease; K72.00 Acute and subacute hepatic failure without coma; I85.11 Secondary esophageal varices with bleeding; N39.0 Urinary tract infection, site not specified; I12.0 Hypertensive chronic kidney disease with stage 5 chronic kidney disease or end stage renal disease; N17.9 Acute kidney failure, unspecified; D62 Acute posthemorrhagic anemia; K76.6 Portal hypertension; R18.8 Other ascites; I34.0 Nonrheumatic mitral (valve) insufficiency; K75.81 Nonalcoholic steatohepatitis (NASH); K74.3 Primary biliary cirrhosis; D69.59 Other secondary thrombocytopenia; E11.22 Type 2 diabetes mellitus with diabetic chronic kidney disease; Z85.3 Personal history of malignant neoplasm of breast; Z99.2 Dependence on renal dialysis; B39.9 Histoplasmosis, unspecified; E78.5 Hyperlipidemia, unspecified; F32.9 Major depressive disorder, single episode, unspecified; Z79.4 Long term (current) use of insulin; K72.10 Chronic hepatic failure without coma; D12.5 Benign neoplasm of sigmoid colon; K64.8 Other hemorrhoids
CPT/HCPCS: A4216; C9113; J0696; J0882; J1644; J1815; J2405; J2704; J2916; J3370; J7030; J7050; P9016; P9035

== ENCOUNTER 2018-08-16 15:54 | Inpatient (IN) | payer BC ==
[~2018-08-16] VITALS: Ht 162.6 cm; Wt 113.6 kg
--- NOTE | 2018-08-16 14:10 | NUR ---
REPORT RECEIVED FROM NAOMI PEREZ FROM [facility].
[~2018-08-16 15:54] MED LIST changes: +KENALOG-1010 MG/ML TOP; +LACTULOSE10 GM/153 PO; +NOVOLOG FLEX100 U/ML SQ; +PROAMATINE 5MG T5 MG PO
--- NOTE | 2018-08-16 16:22 | NUR ---
PATIENT ARRIVED TO ROOM 308 ACCOMPANIED BY SPOUSE.ORIENTED TO ROOM.NAOMI SINGH PERFORMED ASSESSMENT AND WILL DOCUMENT.NO OTHER NEEDS VOICED AT THIS TIME.CALL LIGHT IN REACH
[2018-08-16 17:43] VITALS: BP 100/50; PULSE 72; TEMP 97.1
[2018-08-16 17:56] LABS: BASO # 0.1 (0.0-0.2); BASO % 0.7 % (0.0-2.0); EOS # 0.6 (0.0-0.7); EOS % 7.6 % (0-4.0); GRAN # 4.9 (1.4-6.5); GRAN % 63.9 % (42.2-75.2); LYMPH # 0.9 (1.2-3.4); LYMPH % 11.8 % (20.0-51.0); MEAN CELL VOLUME 103 fl (80.0-100.0); MEAN CORPUSCULAR HGB CONC 34 g/dl (33.0-37.0); MEAN PLATELET VOLUME 11.1 fl (7.4-10.4); MONO # 1.2 (0.1-0.6); MONO % 15.1 % (1.7-9.3); RED BLOOD COUNT 2.38 M/mm3 (4.10-5.30); REDCELL DISTRIBUTION WIDTH-CV 21.1 % (11.5-14.5)
[2018-08-16 17:57] LABS: HEMATOCRIT 24.4 % (37.0-47.0); HEMOGLOBIN 8.4 g/dl (12.5-16.0); MEAN CORPUSCULAR HEMOGLOBIN 35 pg (27.0-31.0)
[2018-08-16 18:00] LABS: PLATELET COUNT 49 K/mm3 (130-400)
[2018-08-16 18:06] LABS: CALCIUM 8.7 mg/dL (8.4-10.2); POTASSIUM 4.1 mmol/L (3.4-5.0)
--- NOTE | 2018-08-16 18:07 | NUR ---
PLATELET COUNT RESULTED AT 49. CALL TO DR COHN. NOTIFED OF RESULT. REVIEWED CBC. DR. COHN REPORTS THAT THIS IS EXPECTED AND NO NEW ORDERS RECEIVED. WILL RECHECK IN AM.
[2018-08-16 18:09] LABS: CREATININE, serum 4.92 (0.52-1.25)
--- NOTE | 2018-08-16 18:34 | NUR ---
PATIENT ARRIVED TO HOSPITAL FROM [facility] PATIENT AN INPATIENT. UPON ARRIVAL A/O X 4. ATTITUDE CALM, COOPERATIVE, AND PLEASANT. DENIES C/O OF PAIN OR DISCOMFORT. PATIENT AND ORIENTATED TO ROOM AND PLAN OF CARE. SEE ASSESSMENT FOR SYSTEM REVIEW REMARKABLE FOR ABD DISTENSION D/T ASCITES R/T ASCITES. BLLE PRESENT WITH 2+ PITTING EDEMA. LUNG SOUND CTA THROUGHOUT. HEART REGULAR RATE AND RYHTHM. HAS HX OF ESRD ON DIALYSIS. DR COHN ROUNDING ON PATIENT AND WILL PLACE ORDERS.
[2018-08-16 19:02] VITALS: BP 105/53; PULSE 83; TEMP 97.8
--- NOTE | 2018-08-16 19:05 | NUR ---
PT RESTING IN BED AT THIS TIME.THIS RN REVIEWED NAOMI SINGHRADIOGRAPHER ANGIOGRAM AND AGREES WITH ALL FINDINGS.PATIENT DENIES ANY NEEDS AT THIS TIME.CALL LIGHT IN REACH.
--- NOTE | 2018-08-16 19:09 | NUR ---
REPORT GIVEN TO NAOMI CURRAN
[2018-08-16 20:00] VITALS: BP 105/53; PULSE 83; TEMP 97.8
--- NOTE | 2018-08-16 23:23 | NUR ---
Patient assessed around 2200. Denied having any pain. Did complain of itching all over and requested Benadryl. Call placed to Dr. Muller and requested order. Order received for Benadryl 25 mg po QHS. Given as requested. Voiced no other needs or concerns. Resting in bed reading magazine at this time. Call light is within reach.
[2018-08-16 23:38] VITALS: BP 105/50; PULSE 88; TEMP 98.1
[2018-08-17 03:20] VITALS: BP 100/45; PULSE 93; TEMP 98
[2018-08-17 06:27] LABS: BASO # 0.1 (0.0-0.2); BASO % 0.9 % (0.0-2.0); EOS # 0.5 (0.0-0.7); EOS % 6.8 % (0-4.0); LYMPH # 0.9 (1.2-3.4); LYMPH % 11.4 % (20.0-51.0); MEAN CELL VOLUME 102 fl (80.0-100.0); MEAN CORPUSCULAR HGB CONC 36 g/dl (33.0-37.0); MEAN PLATELET VOLUME 10.9 fl (7.4-10.4); MONO # 1.2 (0.1-0.6); MONO % 15.4 % (1.7-9.3); RED BLOOD COUNT 2.11 M/mm3 (4.10-5.30); REDCELL DISTRIBUTION WIDTH-CV 20.6 % (11.5-14.5)
[2018-08-17 06:30] LABS: HEMATOCRIT 21.6 % (37.0-47.0); HEMOGLOBIN 7.8 g/dl (12.5-16.0); MEAN CORPUSCULAR HEMOGLOBIN 37 pg (27.0-31.0)
[2018-08-17 06:31] LABS: INR 1.4 (0.8-3.0); PLATELET COUNT 48 K/mm3 (130-400); PROTHROMBIN TIME 16.1 SECONDS (9.7-12.8)
[2018-08-17 06:39] LABS: CALCIUM 8.6 mg/dL (8.4-10.2); POTASSIUM 3.9 mmol/L (3.4-5.0)
--- NOTE | 2018-08-17 06:41 | NUR ---
Patient has voiced no complaints of pain or discomfort throughout the night. Did complain of itching all over this morning, which patient reports is normal for her. Denies having pain and discomfort. Platelets this morning are critical at 48, but WNL for patient. Continues to have 3+ edema to BLE. Continues to refuse GIO hose. Indwelling perez catheter patent, with dark yellow, cloudy urine. 75 mls of urine emptied. Resting in bed with eyes closed at this time. Call light is within reach.
[2018-08-17 06:52] LABS: CREATININE, serum 5.49 (0.52-1.25)
--- NOTE | 2018-08-17 07:51 | NUR ---
Assessment complete.patient awake,a/ox3.denies pain or discomfort at this time.LSCTA.patient has a Dialysis catheter to right upper chest-CDI.abdoment is firm and distended.bowel sounds present and active.Bhardwaj catheter in place and draining minimal output to dependent drainage.3+ pitting edema to BLE.blisters noted to bilat legs.discoloration also noted to BLE.patient refuse Wai Hose.all meds given.no other needs voiced at this time.will continue to monitor.call light in reach
[2018-08-17 07:55] VITALS: BP 102/51; PULSE 90; TEMP 98.4
--- NOTE | 2018-08-17 09:00 | NUR ---
PT TAKEN TO DIALYSIS
--- NOTE | 2018-08-17 09:57 | NUR ---
Initial visit; Patient thanked Tube Former Operator for looking in on her and offering God's blessings and to keep her in Tube Former Operator's prayers.
--- NOTE | 2018-08-17 13:17 | NUR ---
RECEIVED REPORT FROM DIALYSIS,PATIENT TO BE TRANSPORTED TO ROOM 308.
[2018-08-17 13:27] VITALS: BP 103/61; PULSE 97; TEMP 98.1
[2018-08-17 14:51] LABS: PERITONEAL FLUID RBC 1000 /mm3 (0-0)
--- NOTE | 2018-08-17 15:43 | NUR ---
MAGALIS met with the patient and patient's , Valentin, to discuss discharge plan. The patient lives in [place] with her and son (Sean). She reports needing some assistance with getting into her shower, but state she is otherwise independent with ADLs. She states that her is able to assist her. She states she has a cane and walker. The patient's PCP is Dr. Carie Moreland and she receives her medications at [facility]. She reports no difficulties obtaining her meds. The patient's advanced directives are in EMR. MAGALIS completed the 30 day Re-admit Interview with the patient. The patient plans to return home with her family upon discharge. No additional needs at this time.
[2018-08-17 15:58] VITALS: BP 106/41; PULSE 90; TEMP 98.2
[2018-08-17 19:13] VITALS: BP 101/47; PULSE 88; TEMP 98.2
--- NOTE | 2018-08-17 19:39 | NUR ---
REPORT GIVEN TO NAOMI DIOR.
--- NOTE | 2018-08-17 20:50 | NUR ---
Shift assessment complete. Pt resting in bed, awake, a&o, cooperative c cares. Pt denies pain or other c/o at this time. INT patent. HD cath noted to R chest, s complication. Pt denies needs. Call light in reach, will monitor.
[2018-08-17 23:04] VITALS: BP 96/47; PULSE 86; TEMP 98.8
[2018-08-18 03:44] VITALS: BP 96/48; PULSE 81; TEMP 98.4
[2018-08-18 06:49] LABS: BASO % 0.5 % (0.0-2.0); EOS # 0.4 (0.0-0.7); EOS % 7.8 % (0-4.0); GRAN # 3.3 (1.4-6.5); GRAN % 60.3 % (42.2-75.2); LYMPH # 0.7 (1.2-3.4); LYMPH % 11.9 % (20.0-51.0); MEAN CELL VOLUME 104 fl (80.0-100.0); MEAN CORPUSCULAR HGB CONC 34 g/dl (33.0-37.0); MEAN PLATELET VOLUME 10.4 fl (7.4-10.4); MONO # 1.1 (0.1-0.6); RED BLOOD COUNT 1.92 M/mm3 (4.10-5.30); REDCELL DISTRIBUTION WIDTH-CV 20.7 % (11.5-14.5)
[2018-08-18 06:50] LABS: HEMOGLOBIN 6.8 g/dl (12.5-16.0); MEAN CORPUSCULAR HEMOGLOBIN 35 pg (27.0-31.0)
[2018-08-18 06:51] LABS: PLATELET COUNT 28 K/mm3 (130-400)
[2018-08-18 07:00] LABS: CALCIUM 8.4 mg/dL (8.4-10.2); CREATININE, serum 4.32 (0.52-1.25); POTASSIUM 3.6 mmol/L (3.4-5.0)
[2018-08-18 07:14] VITALS: BP 115/47; PULSE 80; TEMP 98.5
--- NOTE | 2018-08-18 08:00 | NUR ---
Patient assessment complete. Patient laying in bed, awaiting dialysis. Patient denies SOB, chest pain, dizziness, numbness or tingling, N/V. Heart RRR. Lungs clear throughout. Bowel sounds present X4. Radial pulses strong bilaterally. Distal pulses difficult to find. Patient has BLE edema 4+. Patient eating breakfast. Patient reports having 2 BM overnight, refusing lactulose until she gets home. Patient has BLE dermatitis, applied aristocort. Denies other needs at this time. Call light within reach.
--- NOTE | 2018-08-18 08:45 | NUR ---
Patient down for dialysis at this time. Escorted in bed by aide.
[2018-08-18] MEDS ORDERED: LEVAQUIN 5500 MG/TA1 PO (12:40)
--- NOTE | 2018-08-18 12:45 | NUR ---
Patient receiving 1 unit PRBC while in dialysis. Verified with NAOMI Garber. Consent signed. Patient will return to room after transfusion.
--- NOTE | 2018-08-18 14:30 | NUR ---
PATIENT BACK FROM DIALYSIS. PATIENT RECEIVED 1 UNIT OF PRBC AFTER DIALYSIS WHILE STILL DOWN THERE. BLOOD ADMINISTERED BY NAOMI ORONAGAS APPLIANCE MECHANIC.
[2018-08-18 15:39] LABS: HEMATOCRIT 25.2 % (37.0-47.0); HEMOGLOBIN 8.6 g/dl (12.5-16.0)
[2018-08-18 16:00] VITALS: BP 104/53; PULSE 89; TEMP 97.8
--- NOTE | 2018-08-18 17:15 | NUR ---
Patient discharged with driving her home. Escorted out via wheelchair by roxy Cazares. INT left wrist IV discontinued with catheter tip intact. No phlebitis or inflammation noted. Discharge instructions discussed, patient verbalizes understanding.
== END 2018-08-18 17:15 | disposition home or self-care (01) | DRG 432 ==
LOC: MEDICAL 15:54
PROVIDERS: ADMIT Internal Medicine
PROC: 0W9G3ZZ Drainage of Peritoneal Cavity, Percutaneous Approach (ICD-10-PCS; principal; 2018-08-16)
PROC: 5A1D70Z Performance of Urinary Filtration, Intermittent, Less than 6 Hours Per Day (ICD-10-PCS; 2018-08-17)
DX: K74.3 Primary biliary cirrhosis (principal); N18.6 End stage renal disease; R18.8 Other ascites; N39.0 Urinary tract infection, site not specified; Z68.41 Body mass index [BMI] 40.0-44.9, adult; E87.70 Fluid overload, unspecified; D69.6 Thrombocytopenia, unspecified; I95.9 Hypotension, unspecified; I34.0 Nonrheumatic mitral (valve) insufficiency; E66.01 Morbid (severe) obesity due to excess calories; D63.8 Anemia in other chronic diseases classified elsewhere; K42.9 Umbilical hernia without obstruction or gangrene; K75.81 Nonalcoholic steatohepatitis (NASH); Z88.8 Allergy status to other drugs, medicaments and biological substances; K72.90 Hepatic failure, unspecified without coma; Z99.2 Dependence on renal dialysis
CPT/HCPCS: J1644; J1815; J7030; P9016; P9047

== ENCOUNTER 2018-08-23 08:53 | Inpatient (IN) | payer BC ==
[~2018-08-23] VITALS: Ht 165.1 cm; Wt 96.3 kg
[2018-08-23] VITALS (254 sets, daily range): BP systolic 92–116; BP diastolic 51–73; PULSE 84–92; TEMP 97.9–98.7; O2SAT 95–100
[~2018-08-23 08:53] MED LIST changes: +LEVAQUIN 5500 MG/TA1 PO
--- NOTE | 2018-08-23 12:20 | NUR ---
AT BEDSIDE TALKING WITH PATIENT AND . HAS LOTS OF QUESTIONS FOR . DIALYSIS CALLED AND WANTS TO TAKE PATIENT IN AN HOUR.
--- NOTE | 2018-08-23 12:30 | NUR ---
AT BEDSIDE. ABDOMINAL DRESSINGS ARE SATURATED WITH ABDOMINAL FLUID. APPLIED UROSTOMY BAG TO DEPENDENT DRAINAGE OVER WEEPY FISTULA SITE. PATIENT HAS HX OF CIRRHOSIS OF THE LIVER AND PORTAL HTN. [place] REPORTS 1 LITER OF FLUIDS FROM ABDOMIN FROM MANUAL MANIPULATION. PATIENT IS VERY OBESE, DM AND HAS DIALYSIS M,W,F. RIGHT CHEST DIALYSIS CATH INPLACE. STARTED 20 GAUZE RIGHT HAND IV TO INT. NOTED +2 EDEMA TO BLE. PEDAL PULSES +1. DEMINISHED LUNG BASES. ORDERED LABS. NOTED LOW PLT COUNT AND HGB OF 7.4. BOTH AND AWARE. PATIENT IS A&O. PALE IN COLOR. ADMISSION VITALS 116/51, 92, 99% ON RA. AT BEDSIDE. SEE PHYSICIAN ORDERS.
[2018-08-23 12:51] LABS: INR 1.6 (0.8-3.0); PROTHROMBIN TIME 18.7 SECONDS (9.7-12.8)
[2018-08-23 13:03] LABS: ALBUMIN 2.7 gm/dL (3.5-5.0); BILIRUBIN,TOTAL 1.2 mg/dL (0.0-1.0); CALCIUM 8.2 mg/dL (8.4-10.2); POTASSIUM 4.2 mmol/L (3.4-5.0); TOTAL PROTEIN 5.4 gm/dL (6.4-8.2)
[2018-08-23 13:04] LABS: CREATININE, serum 4.73 (0.52-1.25)
--- NOTE | 2018-08-23 13:35 | NUR ---
PATIENT GOING DOWN TO DIALYSIS VIA WHEELCHAIR.
--- NOTE | 2018-08-23 15:35 | NUR ---
DISK OPERATOR CALLED TO NOTIFY FLOOR STAFF ABOUT PATIENT'S HYPOXIA AND HYPOTENSION SPELL DURING DIALYSIS. PATIENT TRANSFERING TO ICU #6
--- NOTE | 2018-08-23 17:30 | NUR ---
Pt admitted to ICU 6, Currently resting in bed comfortable, denies only slight discomfort and unbelical site. VSS, Lungs clear, pulse palpable. Pt mirlande slight pale complexion. Orders recieved for pt, will initial and continue to monitor.
--- NOTE | 2018-08-23 20:00 | NUR ---
PT HAS DRAINING UMBILICAL HERNIA. UROSTOMY BAG WAS PLACED OVER UMBILICUS AND CONNECTED TO DENNY BAG, DUE TO EXCESSIVE DRAINAGE, BY DAY SHIFT STAFF ON 08/23/18. PT A&O X3, DENIES PAIN.
--- NOTE | 2018-08-23 20:15 | NUR ---
PT HAS SPO2 MONITOR ON LEFT FOOT PLACED BY DAY SHIFT ON 08/23/18. PTS SOCK WAS PLACED ON OVER PROBE AND CORD INDENTED INTO PTS SKIN. SOCK IS NOW REMOVED AND CORD HANGING FREE TO PREVENT SKIN INJURY. WILL CONTINUE TO MONITOR.
--- NOTE | 2018-08-23 21:00 | NUR ---
WAFER CHANGED OVER UMBILICAL SITE. AREA WAS CLEANSED AND SKIN BARRIER PROTECTANT WAS APPLIED PRIOR TO NEW WAFER APPLICATION. UMBILICUS WAS RED IN COLOR, DRAINAGE WAS STEADILY STREAMING OUT FROM UMBILICAL SITE.
--- NOTE | 2018-08-23 21:00 | NUR ---
PTS WAFER ON UMBILICUS CHANGED DO TO LEAKAGE. PTS SHEETS AND GOWN CHANGED. PT ABDOMEN, LEGS, AND SANJIV AREA CLEANSED AND DRIED. BARRIER CREAM APPLIED TO LEFT ABD SKIN FOLDS.
--- NOTE | 2018-08-23 21:30 | NUR ---
PT STATES SHE IS TO HAVE HAVE MITRAL CLIP PLACED AT [facility] ON 09/03/18. AFTER PROCEDURE IS COMPLETE, PT STATES SHE WILL THEN BE ABLE TO PROCEED TO HAVE A LIVER AND KIDNEY TRANSPLANT.
[2018-08-24] VITALS (666 sets, daily range): BP systolic 94–112; BP diastolic 50–61; PULSE 82–94; TEMP 97.5–98.4; O2SAT 35–100
[2018-08-24 05:37] LABS: INR 1.7 (0.8-3.0); PROTHROMBIN TIME 19.5 SECONDS (9.7-12.8)
[2018-08-24 05:41] LABS: ALBUMIN 2.7 gm/dL (3.5-5.0); BILIRUBIN,TOTAL 1.2 mg/dL (0.0-1.0); CALCIUM 8.3 mg/dL (8.4-10.2); CREATININE, serum 4.99 (0.52-1.25); MEAN CELL VOLUME 101 fl (80.0-100.0); MEAN CORPUSCULAR HGB CONC 35 g/dl (33.0-37.0); MEAN PLATELET VOLUME 10.7 fl (7.4-10.4); PHOSPHOROUS 7.2 mg/dL (2.5-4.5); RED BLOOD COUNT 2.33 M/mm3 (4.10-5.30); REDCELL DISTRIBUTION WIDTH-CV 18.6 % (11.5-14.5); TOTAL PROTEIN 5.1 gm/dL (6.4-8.2)
[2018-08-24 05:44] LABS: HEMATOCRIT 23.5 % (37.0-47.0); HEMOGLOBIN 8.2 g/dl (12.5-16.0); MEAN CORPUSCULAR HEMOGLOBIN 35 pg (27.0-31.0)
[2018-08-24 05:46] LABS: PLATELET COUNT 43 K/mm3 (130-400)
--- NOTE | 2018-08-24 07:25 | NUR ---
REPORT RECEIVED FROM ESTHER SALGADO. CARE ASSUMED.
[2018-08-24 07:37] LABS: BAND 1 % (0-10); BASOPHIL 3 % (0-2); EOSINOPHIL 8 % (0-4); LYMPHOCYTE 15 % (20.0-51.0); MYELOCYTE 1 % (0-0); NEUTROPHILS 63 % (42.0-75.2); PLATELET ESTIMATE DECREASED (NORMAL)
[2018-08-24 07:38] LABS: ANISOCYTOSIS 1+
--- NOTE | 2018-08-24 07:55 | NUR ---
RECIEVED CALL FROM DR QUIROGA REQUESTING AN UPDATE ON PATIENT. PROVIDER UPDATED ON PATIENT'S I & O OVERNIGHT, RECENT VITAL SIGNS, AND AM LAB WORK. DR PUCKETT STATES TO INCREASE IVF RATE TO 75ML/HR, NO DIALYSIS TODAY, AND TO CALL SURGERY FOR UPDATE ON STATUS OF UMBICAL HERNIA ABSCESS INTERVENTIONS.
--- NOTE | 2018-08-24 09:00 | NUR ---
PT REFUSING SCD'S
--- NOTE | 2018-08-24 09:04 | NUR ---
DR AHUJA PRESENT TO ASSESS UMBILICAL SITE TO DETERMINE INTERVENTION TO BE PERFORMED WHETHER PLEUR-X DRAIN OR PIGTAIL. DR AHUJA READ DR HER'S CONSULT NOTE BUT STATES HE WILL CALL DR HER TO FIGURE OUT THE BEST PLAN OF CARE AND WILL KEEP NURSING UPDATED ON PLAN.
--- NOTE | 2018-08-24 10:21 | NUR ---
MAGALIS met with patient and abotu discharge planning. Patient lives independently at home with her and plans to return there upon discharge. Patient's PCP is Dr Carie Moreland and she obtains prescriptions from [facility] in [place], [place]. Patient reports she has a walker and cane at home but no other DME is reports. Patient does not use any home health services. Patient does have a DPOA and a copy is in the EMR. MAGALIS does not anticipate any discharge needs.
--- NOTE | 2018-08-24 11:06 | NUR ---
CALLED BLOOD BANK TO INQUIRE ABOUT TIMING FOR PLATELETS. BLOOD BANK STATES WE DO NOT HAVE ANY PLATELETS ON SITE AND WOULD HAVE TO CALL [facility]. AWAITING CALL BACK FROM LAB TO FIND OUT TIME FRAME OF WHEN THEY WILL BE AVAIABLE TO TRANSFUSE.
--- NOTE | 2018-08-24 11:07 | NUR ---
PT TAKEN VIA WHEELCHAIR TO CT FOR CT ABD/PELVIS BY WHEELCHAIR.
--- NOTE | 2018-08-24 11:27 | NUR ---
First visit from the hydroelectric machinery mechanic. No needs right now.
--- NOTE | 2018-08-24 15:13 | NUR ---
DR PUCKETT PRESENT TO ASSESS PATIENT. PROVIDER INITIATING TRANSFER TO
--- NOTE | 2018-08-24 15:55 | NUR ---
AWAITING ACCEPTING PHYSICIAN AND BED ASSIGNEMENT FROM [facility].
--- NOTE | 2018-08-24 18:01 | NUR ---
REPORT CALLED TO NICHOL SALGADO ON SURGICAL ICU AT . NURSING STAFF TO CALL NURSE WHEN PATIENT LEAVES FACILITY.
--- NOTE | 2018-08-24 19:58 | NUR ---
9 LINE ARRIVED TO WINDOWS AND DOORS INSTALLER PATIENT. PATIENTS VITALS UPON DEPARTURE WERE HR - 97, RR -16, 02 - 96% ON RA, BP - 108/69, TEMP - 98.5. ALL QUESTIONS AND CONCERNS ADDRESSED. FAMILY AT BEDSIDE ALL POSSESSIONS SENT WITH PATIENT. PATIENT ASSISTED OFF UNIT ACCOMPANIED BY 9 LINE. PASSING OFF CARE AT THIS TIME. CALLED TRANSFERING FACILITY TO LET THEM KNOW OF PATIENTS DEPARTURE.
== END 2018-08-24 19:58 | disposition short-term general hospital (02) | DRG 441 ==
LOC: SURG 08:53 → ICU 11:30 → SURG 11:30 → ICU 15:30
PROVIDERS: Surgery; ADMIT Internal Medicine Nephrology
PROC: 5A1D70Z Performance of Urinary Filtration, Intermittent, Less than 6 Hours Per Day (ICD-10-PCS; principal; 2018-08-23)
PROC: 30233N1 Transfusion of Nonautologous Red Blood Cells into Peripheral Vein, Percutaneous Approach (ICD-10-PCS; principal; 2018-08-23)
DX: K76.7 Hepatorenal syndrome (principal); N18.6 End stage renal disease; I12.0 Hypertensive chronic kidney disease with stage 5 chronic kidney disease or end stage renal disease; K42.9 Umbilical hernia without obstruction or gangrene; E11.22 Type 2 diabetes mellitus with diabetic chronic kidney disease; Z99.2 Dependence on renal dialysis; Z79.4 Long term (current) use of insulin; Z79.84 Long term (current) use of oral hypoglycemic drugs; D63.1 Anemia in chronic kidney disease; D69.6 Thrombocytopenia, unspecified; Z85.3 Personal history of malignant neoplasm of breast; K75.81 Nonalcoholic steatohepatitis (NASH); I95.1 Orthostatic hypotension; Z53.09 Procedure and treatment not carried out because of other contraindication
CPT/HCPCS: J1644; J1815; J1956; J7030; P9016; P9047